=== PATIENT | male | born 2000 | race Caucasian/White ===

== ENCOUNTER 2024-05-18 23:04 | Emergency (ER) | payer SELFPAY ==
--- NOTE | 2024-05-18 23:18 | EDRN ---
Pt called multiple times for triage - pt is in the bathroom
[2024-05-18 23:22] VITALS: BP 115/82
[2024-05-18] MEDS: ZOFRAN ODT (ORALLY DISINTEGRATING) 4 MG PO (23:28)
[2024-05-19] VITALS (11 sets, daily range): BP systolic 95–139; BP diastolic 63–92; BMI 19.1
--- NOTE | 2024-05-19 05:24 | ED.GENMED ---
History of Present Illness
<Meet Woo DO - Last Filed: 05/19/24 07:16>
General
Chief Complaint: Abdominal Symptoms
Source: patient
Exam Limitations: none
Time Seen by Provider: 05/19/24 05:15
Nursing documentation reviewed up to this point in time: agreed with
History of Present Illness
History of Present Illness:
23-year-old male prior history of drug-induced liver disease no longer using drugs social drinker presents with nausea vomiting diarrhea since yesterday girlfriend sick with similar, feels fatigued and weak headache vomiting greater than 10 times
multiple episodes of diarrhea, positive abdominal cramping, no travel, no raw or undercooked foods no recent tattoos no recent dental
Past History
<Meet Woo DO - Last Filed: 05/19/24 07:16>
Past History
ED Past Medical History: None
Social History
Tobacco: Non-smoker
Alcohol: Occasional
Drug: Former user
Personal: Single
Living: with family
Employment: Employed
Review of Systems
<Meet Woo DO - Last Filed: 05/19/24 07:16>
Review of Systems
All Other Systems: Not applicable
Constitutional: Reports fever, fatigue and chills
EENT: Reports no symptoms
Respiratory: Reports no symptoms; Denies cough or trouble breathing
Cardiac: Reports no symptoms
ABD/GI: Reports abdominal pain, nausea, vomiting and diarrhea
: Reports no symptoms
Musculoskeletal: Reports muscle stiffness
Skin: Reports no symptoms
Neurological: Reports dizzy and headache
Endocrine: Reports no symptoms
Phy Exam
<Meet Woo DO - Last Filed: 05/19/24 07:16>
Physical Exam
Physical Exam:
Physical Exam
General: 23 male warm to touch looks uncomfortable
Neck: Dry lips
Heart: Tachycardic
Lungs: no acute respiratory distress. clear bilaterally
Abdomen: Soft mild diffuse tenderness
Neuro: alert and oriented. no focal neurological deficits
Skin: no rash
Psychiatric: well kept. interactive and cooperative
Extremities: no edema.
Course
<Meet Woo, DO - Last Filed: 05/19/24 07:16>
Orders/Labs/Results
Orders:
Orders
05/18/24 23:26
Ondansetron Orally Disint [Zofran Odt (Orally Disintegrating)] 4 mg PO NOW STA
05/18/24 23:27
Ondansetron Orally Disint [Zofran Odt (Orally Disintegrating)] 4 mg .ROUTE .[facility]
05/19/24 05:22
0.9% Sodium Chloride 1000 ml [Nss] 1,000 ml IV BOLUS
Loperamide [Imodium] 2 mg PO NOW STA
Ondansetron Injectable [Zofran] 4 mg IV NOW STA
Pantoprazole [Protonix IV] 40 mg IV NOW STA
05/19/24 05:29
Complete Blood Count/With Diff Urgent
Comprehensive Metabolic Panel Urgent
Lipase Urgent
Comment: ADD ON
05/19/24 07:16
0.9% Sodium Chloride 1000 ml [Nss] 1,000 ml IV BOLUS
05/19/24 12:41
Add On- LAB Urgent
Tests Added?: Lipase
05/19/24 12:42
CT Abd/pelvis W Iv Cont Urgent
Comment:
Reason For Exam: vomiting, upper abd pain
Abnormal Lab Results
05/19/24
05:29
WBC 17.9 H 10^3/uL
(4.8-10.8)
Hgb 18.9 H g/dL
(13.0-18.0)
MCH 31.6 H pg
(27.0-31.0)
Abs Immat Gran (auto) 0.1 H 10^3/uL
(0-0.05)
Absolute Neuts (auto) 16.6 H 10^3/uL
(1.4-6.5)
Absolute Lymphs (auto) 0.4 L 10^3/uL
(1.2-3.4)
Absolute Monos (auto) 0.8 H 10^3/uL
(0.1-0.6)
Neutrophils % 93.0 H %
(42.2-75.2)
Lymphocytes % 2.1 L %
(20.5-51.1)
Chloride 97 L mmol/L
(98-107)
Glucose 131 H mg/dl
(70-99)
Total Protein 8.5 H g/dl
(6.3-8.2)
Albumin 5.3 H g/dl
(3.5-5.0)
05/19/24 05:29
05/19/24 05:29
Vital Signs
Initial and Last Documented VS:
Initial Vital Signs
Temp Pulse Resp BP Pulse Ox
98.9 F 104 16 115/82 97
05/18/24 23:22 05/18/24 23:22 05/18/24 23:22 05/18/24 23:22 05/18/24 23:22
Last Documented Vital Signs
Temp Pulse Resp BP Pulse Ox
98.9 F 72 17 109/66 98
05/18/24 23:22 05/19/24 14:00 05/19/24 14:00 05/19/24 14:00 05/19/24 05:21
<Misael Ferrera, DO - Last Filed: 05/19/24 15:49>
Orders/Labs/Results
Orders:
Orders
01/27/25 23:26
Ondansetron Orally Disint [Zofran Odt (Orally Disintegrating)] 4 mg PO NOW STA
05/18/24 23:27
Ondansetron Orally Disint [Zofran Odt (Orally Disintegrating)] 4 mg .ROUTE .[facility]
05/19/24 05:22
0.9% Sodium Chloride 1000 ml [Nss] 1,000 ml IV BOLUS
Loperamide [Imodium] 2 mg PO NOW STA
Ondansetron Injectable [Zofran] 4 mg IV NOW STA
Pantoprazole [Protonix IV] 40 mg IV NOW STA
05/19/24 05:29
Complete Blood Count/With Diff Urgent
Comprehensive Metabolic Panel Urgent
Lipase Urgent
Comment: ADD ON
05/19/24 07:16
0.9% Sodium Chloride 1000 ml [Nss] 1,000 ml IV BOLUS
05/19/24 12:41
Add On- LAB Urgent
Tests Added?: Lipase
05/19/24 12:42
CT Abd/pelvis W Iv Cont Urgent
Comment:
Reason For Exam: vomiting, upper abd pain
Abnormal Lab Results
05/19/24
05:29
WBC 17.9 H 10^3/uL
(4.8-10.8)
Hgb 18.9 H g/dL
(13.0-18.0)
MCH 31.6 H pg
(27.0-31.0)
Abs Immat Gran (auto) 0.1 H 10^3/uL
(0-0.05)
Absolute Neuts (auto) 16.6 H 10^3/uL
(1.4-6.5)
Absolute Lymphs (auto) 0.4 L 10^3/uL
(1.2-3.4)
Absolute Monos (auto) 0.8 H 10^3/uL
(0.1-0.6)
Neutrophils % 93.0 H %
(42.2-75.2)
Lymphocytes % 2.1 L %
(20.5-51.1)
Chloride 97 L mmol/L
(98-107)
Glucose 131 H mg/dl
(70-99)
Total Protein 8.5 H g/dl
(6.3-8.2)
Albumin 5.3 H g/dl
(3.5-5.0)
05/19/24 05:29
05/19/24 05:29
Vital Signs
Initial and Last Documented VS:
Initial Vital Signs
Temp Pulse Resp BP Pulse Ox
98.9 F 104 16 115/82 97
05/18/24 23:22 05/18/24 23:22 05/18/24 23:22 05/18/24 23:22 05/18/24 23:22
Last Documented Vital Signs
Temp Pulse Resp BP Pulse Ox
98.9 F 72 17 109/66 98
05/18/24 23:22 05/19/24 14:00 05/19/24 14:00 05/19/24 14:00 05/19/24 05:21
<Meet Woo, DO - Last Filed: 05/19/24 07:16>
MDM/Problems Addressed
Differential Diagnosis Includes:
Enteritis viral syndrome dehydration influenza norovirus
MDM/Problems Addressed:
Fever nausea vomiting diarrhea
<Misael Ferrera DO - Last Filed: 05/19/24 15:49>
*Critical Care Note
Total Time (30-74mins, 75-104mins- exclusive of procedures): Not Applicable
<Meet Woo DO - Last Filed: 05/19/24 07:16>
Update Note
Update Note:
Update patient feeling better white count up, suspect viral enteritis based upon history and physical, will provide supportive care, serial abdominal exams
7:15 AM patient looks better still tachycardic abdomen soft, will continue hydration
<Misael Ferrera, DO - Last Filed: 05/19/24 15:49>
Update Note
Update Note:
Update patient feeling better white count up, suspect viral enteritis based upon history and physical, will provide supportive care, serial abdominal exams
7:15 AM patient looks better still tachycardic abdomen soft, will continue hydration
3:48 PM the overnight physician signed out the patient to the morning physician. After evaluating the patient, it was deemed necessary to obtain a CT scan for his abdominal pain. The CT scan was then signed out to me. There is no acute
abnormality noted on the CT other than mild splenomegaly. This could be viral. On my exam, the patient is well-appearing and nontoxic. Will write for Noa discussed outpatient follow-up
ED Attending Note
<Meet Woo, DO - Last Filed: 05/19/24 07:16>
-
Portions of this chart may have been created with voice recognition software.� Occasional wrong word or��sound alike� substitutions may have occurred due to the inherent limitations of voice recognition software.
Discharge Plan
Departure
Patient Disposition: Home (Routine Discharge)
Date of Disposition: 05/19/24
Time of Disposition: 15:48
Patient with high blood pressure during this ER visit?: No
Condition: Good
Covid-19: Not Applicable
Discharge Problem:
Vomiting
Instructions: Diarrhea in teens and adults, Dehydration, Adult (DC), Nausea and Vomiting, Adult (DC)
Prescriptions:
New
ondansetron 4 mg tablet,disintegrating
4 mg PO TID PRN (Reason: nausea and vomiting) Qty: 10 0RF
loperamide [Imodium A-D] 2 mg capsule
2 mg PO Q6H PRN (Reason: loose stool) Qty: 10 0RF
Referrals:
NONE,* [Family Provider] -
Activity Restrictions/Additional Instructions:
Please return for any worsening symptoms.
You may return at any time if you have further concerns.
Please follow up with your doctor at the first available appointment, preferably this week. The CT scan did show that your spleen was mildly enlarged. This can be related to a virus. Please have this reassessed by your doctor.
Thank you for choosing [facility].
Interventions
Interventions:
*Risk Screen - Suicide Last Done: 05/18/24 23:22
*General Assessment Last Done: 05/18/24 23:22
*Neglect/Abuse Screening Last Done: 05/19/24 05:12
ED- Fall Risk Assessment Last Done: 05/19/24 05:12
*ED COVID-19 Vaccine History Last Done: 05/18/24 23:22
SH-Zlvbtk-Ovdmfisxtz Assessment Last Done: 05/19/24 07:44
Discharge Date and Time
Print Language: [place]
[2024-05-19] MEDS: NSS 1000 IV ×2 (05:27→07:20)
[2024-05-19] MEDS: IMODIUM 2 MG PO (05:32)
[2024-05-19] MEDS: PROTONIX IV 40 MG IV (05:32)
[2024-05-19] MEDS: ZOFRAN 4 MG IV (05:33)
[2024-05-19 05:40] LABS: % Basophils 0.2 % (0-2); % Immature Granulocytes 0.4 % (0-0.5); % Lymphocytes 2.1 % (20.5-51.1); % Monocytes 4.3 % (1.7-9.3); Absolute Immature Granulocytes 0.1 10^3/uL (0-0.05); Absolute Lymphocytes 0.4 10^3/uL (1.2-3.4); Absolute Monocytes 0.8 10^3/uL (0.1-0.6); Absolute Neutrophils 16.6 10^3/uL (1.4-6.5); Hematocrit 51.7 % (39.0-52.0); Hemoglobin 18.9 g/dL (13.0-18.0); Mean Corp Hgb Conc. 36.6 g/dL (33.0-37.0); Mean Corpuscular Hgb 31.6 pg (27.0-31.0); Mean Corpuscular Volume 86.5 fL (80.0-94.0); Mean Platelet Volume 8.9 fL (7.4-10.4); Nucleated Red Blood Cells % 0 % (-); Platelet Count 273 10^3/uL (130-400); Red Blood Cell Count 5.98 10^6/uL (4.70-6.10); Red Cell Dist. Width 12.2 % (11.5-14.5); White Blood Cell Count 17.9 10^3/uL (4.8-10.8)
[2024-05-19 05:53] LABS: ALT (SGPT) 30 U/L (0-50); AST (SGOT) 32 U/L (17-59); Albumin 5.3 g/dl (3.5-5.0); Alkaline Phosphatase 78 U/L (38-126); Blood Urea Nitrogen 17 mg/dl (9-20); Calcium 9.8 mg/dl (8.4-10.2); Carbon Dioxide 23 mmol/L (22-30); Chloride 97 mmol/L (98-107); Estimated Creatinine Clearance 83 ml/min; Glucose 131 mg/dl (70-99); Sodium 136 mmol/L (135-145); Total Protein 8.5 g/dl (6.3-8.2); eGFR > 60.00
[2024-05-19 13:10] LABS: Lipase 38 U/L (23-300)
== END 2024-05-19 16:11 | disposition home or self-care (01) ==
LOC: EMR 23:04
PROVIDERS: EMERGENCY PHYSICIAN Emergency Medicine
DX: R11.2 Nausea with vomiting, unspecified (principal); R19.7 Diarrhea, unspecified
CPT/HCPCS: 96374; 96375; 96361; 99284; 74177; 80053; 83690; 85025; Q9967

== ENCOUNTER 2024-08-21 14:47 | Emergency (ER) | payer SELFPAY ==
[2024-08-21 14:51] VITALS: BP 133/74
[2024-08-21] MEDS: TORADOL 30 MG IM (15:51)
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
== END 2024-08-21 18:15 | disposition home or self-care (01) ==
LOC: EMR 14:47
PROVIDERS: EMERGENCY PHYSICIAN Student in an Organized Health Care Education/Training Program
DX: M54.50 Low back pain, unspecified (principal); X50.0XXA Overexertion from strenuous movement or load, initial encounter; R03.0 Elevated blood-pressure reading, without diagnosis of hypertension
CPT/HCPCS: 99284; 96372; 72110